=== PATIENT | male | born 1975 ===

== ENCOUNTER 2016-12-30 12:20 | Emergency (ER) | payer OTHER ==
--- NOTE | 2016-12-30 13:30 | ED PDOC ---
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 Patient reports he had convulsions in the past, about 15 this past year. Patient reports he is compliant with Tegretol medications (200 mg, twice per day). Denies any headache , tongue biting or wetting himself. Denies any history of cardiac disease. He reports he feels "violence" before having these convulsions. Denies hitting his head. Reports he currently feels fine, denies any complaints at this time. Denies drinking alcohol or drug use. Symptom Onset: Sudden Symptom Course: Improving, Resolved Activities at Onset: Light Context: Work Past Medical History - Provider Review Nursing Documentation Reviewed: Yes - Infectious Disease Hx of Infectious Diseases: None - Neurological Hx Seizures: Yes - Psychiatric Hx Substance Use: No Family/Social History - Physician Review Nursing Documentation Reviewed: Yes Family/Social History: No Known Family HX Smoking Status: Never Smoked Hx Alcohol Use: No Hx Substance Use: No Allergies/Home Meds Allergies/Adverse Reactions: Allergies No Known Allergies Allergy (Verified 12/30/16 13:07) Home Medications: Home Meds Medication Instructions Recorded Confirmed carBAMazepine [TEGretol-XR] 200 mg PO DAILY 12/30/16 12/30/16 Review of Systems - Physician Review All systems were reviewed & negative as marked: Yes - Review of Systems Constitutional: absent: Fevers Neurological: Seizure. absent: Headache Physical Exam Vital Signs Reviewed: Yes Vital Signs Temp Pulse Resp BP Pulse Ox 12/30/16 18:10 97.4 F L 84 16 110/74 99 12/30/16 16:00 97.8 F 74 16 118/74 97 12/30/16 12:49 98.0 F 83 18 122/76 97 Temperature: Afebrile Blood Pressure: Normal Pulse: Regular Respiratory Rate: Normal Appearance: Positive for: Well-Appearing, Non-Toxic, Comfortable Pain Distress: None Mental Status: Positive for: Alert and Oriented X 3 - Systems Exam Head: Present: Atraumatic, Normocephalic Pupils: Present: PERRL Extroacular Muscles: Present: EOMI Conjunctiva: Present: Normal Mouth: Present: Moist Mucous Membranes Neck: Present: Normal Range of Motion Respiratory/Chest: Present: Clear to Auscultation, Good Air Exchange. No: Respiratory Distress, Accessory Muscle Use Cardiovascular: Present: Regular Rate and Rhythm, Normal S1, S2. No: Murmurs Abdomen: Present: Normal Bowel Sounds. No: Tenderness, Distention, Peritoneal Signs Back: Present: Normal Inspection Upper Extremity: Present: Other (3 cm L shaped laceration over right elbow, hand edges good apposition, will not suture). No: Cyanosis, Edema Lower Extremity: Present: Normal Inspection. No: Edema Neurological: Present: GCS=15, CN II-XII Intact, Speech Normal Skin: Present: Warm, Dry, Normal Color. No: Rashes Psychiatric: Present: Alert, Oriented x 3, Normal Insight, Normal Concentration Medical Decision Making ED Course and Treatment: 12/30/16 13:27 Impression: A 41 year old male with recurrent chronic seizures. Plan: -- EKG -- labs -- Reassess and disposition Progress Notes: EKG: Ordered, reviewed, and independently interpreted the EKG. Rate : 74 BPM Rhythm : NSR Interpretation : Normal intervals, some early repolarization noted in v3-v6 leads, resulting in concave ST elevations in v3-v6. 12/30/16 16:40 Nursing informed, hemolyzed delay in disposition, labs repeated and waiting for results. Patient has been seizure free since arrival here to the emergency department. 12/30/16 17:21 On re-evaluation, patient feels better and is in no acute distress. Patient in agreement with plan to be discharged home. Patient is stable for discharge. Patient was instructed to follow up with physician or return if symptoms worsen or new concerning symptoms arise. - Lab Interpretations Lab Results: 12/30/16 14:21 12/30/16 15:35 Lab Results 12/30/16 15:35: Carbamazepine < 3 L 12/30/16 15:35: Sodium 139, Potassium 4.0, Chloride 104, Carbon Dioxide 27, Anion Gap 12, BUN 13, Creatinine 1.1, Est GFR ( Amer) > 60, Est GFR (Non- Af Amer) > 60, Random Glucose 90, Calcium 9.3, Total Bilirubin 0.6, AST 33, ALT 33, Alkaline Phosphatase 94, Total Protein 7.6, Albumin 4.3, Globulin 3.3, Albumin/Globulin Ratio 1.3 12/30/16 14:21: WBC 5.9, RBC 4.77, Hgb 14.8, Hct 43.2, MCV 90.6, MCH 31.0, MCHC 34.3, RDW 12.4, Plt Count 214, MPV 10.0, Gran % 67.0, Lymph % (Auto) 24.2, Alfalfa % (Auto) 4.9, Eos % (Auto) 3.1, Baso % (Auto) 0.8, Gran # 3.95, Lymph # 1.4, Alfalfa # 0.3, Eos # 0.2, Baso # 0.05 I have reviewed the lab results: Yes - EKG Interpretation Interpreted by ED Physician: Yes Type: 12 lead EKG - Medication Orders Current Medication Orders: Discontinued Medications Carbamazepine (Tegretol) 200 mg PO STAT STA PRN Reason: Protocol Stop: 12/30/16 17:11 - Scribe Statement The provider has reviewed the documentation as recorded by the Gianna Hurst Provider Scribe Attestation: All medical record entries made by the Alannaibe were at my direction and personally dictated by me. I have reviewed the chart and agree that the record accurately reflects my personal performance of the history, physical exam, medical decision making, and the department course for this patient. I have also personally directed, reviewed, and agree with the discharge instructions and disposition. Disposition/Present on Arrival - Present on Arrival Any Indicators Present on Arrival: No History of DVT/PE: No History of Uncontrolled Diabetes: No Urinary Catheter: No History of Decub. Ulcer: No History Surgical Site Infection Following: None - Disposition Have Diagnosis and Disposition been Completed?: Yes Diagnosis: Seizure disorder Disposition: HOME/ ROUTINE Disposition Time: 17:21 Patient Plan: Discharge Condition: GOOD Discharge Instructions (ExitCare): Carbamazepine (By mouth), Epilepsy (ED) Print Language: BELARUSIAN Prescriptions: carBAMazepine [TEGretol] 200 mg PO BID 28 Days tab Referrals: PCP,NO [Primary Care Provider] - Follow up with primary Forms: [employer] (E[place]ian)
[2016-12-30 14:26] LABS: BASO # 0.05 K/mm3 (0.0-2.0); BASO % 0.8 % (0.0-3.0); EOS # 0.2 (0.0-0.7); EOS % 3.1 % (1.5-5.0); GRAN # 3.95 (1.4-6.5); HEMATOCRIT 43.2 % (42.0-52.0); LYMPH # 1.4 (1.2-3.4); LYMPH % 24.2 % (22.0-35.0); MEAN CELL VOLUME 90.6 fl (80.0-105.0); MEAN CORPUSCULAR HGB CONC 34.3 g/dl (31.0-37.0); MONO # 0.3 (0.1-0.6); MONO % 4.9 % (1.0-6.0); RED CELL DISTRIBUTION WIDTH 12.4 % (11.5-14.5); WHITE BLOOD COUNT 5.9 10^3/ul (4.5-11.0)
[2016-12-30 16:44] LABS: ALB/GLOB RATIO 1.3 (1.1-1.8); ALKALINE PHOSPHATASE 94 U/L (38-126); ALT/SGPT 33 U/L (7-56); AST/SGOT 33 U/L (17-59); BILIRUBIN,TOTAL 0.6 mg/dL (0.2-1.3); BLOOD UREA NITROGEN 13 mg/dL (7-21); CALCIUM 9.3 mg/dL (8.4-10.5); CARBON DIOXIDE 27 mmol/L (21-33); CHLORIDE 104 mmol/L (98-107); GFR AFRICAN-AMERICAN > 60; GLUCOSE,RANDOM 90 mg/dL (70-110); TOTAL PROTEIN 7.6 g/dL (5.8-8.3)
[2016-12-30 16:56] LABS: SODIUM 139 mmol/L (132-148)
[2016-12-30 18:28] VITALS: BP 110/74; PULSE 84; RESP 16; TEMP 97.4; O2SAT 99
--- NOTE | 2016-12-30 23:01 | CARD ---
APPROVED REPORT EKG Measurement Heart [id number] <Conclusion> Normal sinus rhythm ST elevation, probably due to early repolarization Borderline ECG
== END 2016-12-30 18:30 | disposition home or self-care (01) ==
LOC: ED 12:20
DX: G40.909 Epilepsy, unspecified, not intractable, without status epilepticus (principal)